=== PATIENT | female | born 1940 | race Caucasian/White ===

== ENCOUNTER 2017-03-14 12:46 | Emergency (ER) | payer MEDICARE ==
--- NOTE | 2017-03-14 15:32 | Diagnostic Imaging Report ---
PROCEDURE:HIP LEFT 2-3 VW (+/- PELVIS) COMPARISON:None. INDICATIONS:HIP PAIN FINDINGS: BONES:A thin, sclerotic band across the neck of the left femur is suggestive of a fracture plane. The femoral head is intact and normally situated with mild degenerative changes of the acetabulum. The right hip is intact and normally positioned. The pubic rami are intact. No diastases the pubic symphysis or sacroiliac joints. There are moderate degenerative changes of the lower lumbar spine. SOFT TISSUES:Multiple vascular soft tissues in the pelvis. CONCLUSION: Suspected nondisplaced fracture of the left femoral neck. Mild degenerative changes of the left hip. Dictated by: Arpita Santos M.D. on 03/14/2017 at 15:40 Electronically approved by: Arpita Santos M.D. on 03/14/2017 at 15:40
--- NOTE | 2017-03-14 15:36 | Diagnostic Imaging Report ---
PROCEDURE:X-RAY CHEST, ONE VIEW COMPARISON:None. INDICATIONS:CHEST PAIN FINDINGS: The patient's chin overlies the upper chest. The heart is normal in size. Aorta is mildly ectatic. No hilar lymphadenopathy. The lungs are well-inflated. There is no evidence of mass or infiltrate. The pulmonary vascular markings are normal. The costophrenic angles are sharp. No evidence of pneumothorax. The bones are intact without focal osseous lesion. There is suggestion of surgical clips in the right upper quadrant indicative of cholecystectomy. CONCLUSION: No acute cardiopulmonary process. Dictated by: Arpita Santos M.D. on 03/14/2017 at 15:44 Electronically approved by: Arpita Santos M.D. on 03/14/2017 at 15:44
[2017-03-15] MEDS ORDERED: TYLENOL WITH C1 EACH PO (03:51)
[2017-03-15] MEDS ORDERED: DEPAKOTE SPRIN125 MG PO (03:51)
[2017-03-15] MEDS ORDERED: SEROQUEL25 MG PO (03:51)
[2017-03-15] MEDS ORDERED: METFORMIN HCL500 MG PO (03:51)
[2017-03-15] MEDS ORDERED: HYDRALAZINE HCL25 MG PO (03:51)
[2017-03-15] MEDS ORDERED: LOMOTIL TABLET1 EACH PO (03:51)
[2017-03-15] MEDS ORDERED: IPRAT-ALBUT 0.5-3 ML INH (03:51)
[2017-03-15] MEDS ORDERED: OXYBUTYNIN CHLOR5 MG PO (03:51)
[2017-03-15] MEDS ORDERED: VITAMIN D1000 UNI1 PO (03:51)
[2017-03-15] MEDS ORDERED: NIFEDIPINE ER30 M1 PO (03:51)
== END 2017-03-14 19:17 | disposition left against medical advice (07) ==
LOC: ER 12:46
DX: M25.552 Pain in left hip (principal)
CPT/HCPCS: 71010

== ENCOUNTER 2017-03-14 22:59 | Inpatient (IN) | payer MEDICARE ==
[~2017-03-14] VITALS: Ht 154.9 cm; Wt 54.4 kg
[2017-03-15] VITALS (7 sets, daily range): BP systolic 120–153; BP diastolic 58–67
[2017-03-15] MEDS ORDERED: NIFEDIPINE ER30 M1 PO (03:51)
[2017-03-15] MEDS ORDERED: METFORMIN HCL500 MG PO (03:51)
[2017-03-15] MEDS ORDERED: TYLENOL WITH C1 EACH PO (03:51)
[2017-03-15] MEDS ORDERED: LOMOTIL TABLET1 EACH PO (03:51)
[2017-03-15] MEDS ORDERED: SEROQUEL25 MG PO (03:51)
[2017-03-15] MEDS ORDERED: VITAMIN D1000 UNI1 PO (03:51)
[2017-03-15] MEDS ORDERED: OXYBUTYNIN CHLOR5 MG PO (03:51)
[2017-03-15] MEDS ORDERED: IPRAT-ALBUT 0.5-3 ML INH (03:51)
[2017-03-15] MEDS ORDERED: HYDRALAZINE HCL25 MG PO (03:51)
[2017-03-15] MEDS ORDERED: DEPAKOTE SPRIN125 MG PO (03:51)
[2017-03-15] MEDS ORDERED: DIPHENOXYLATE/ATROPINE TAB PO PRN (04:00)
[2017-03-15] MEDS ORDERED: ALBUTEROL/IPRATROPIUM 3 ML NEB INH PRN (04:00)
[2017-03-15] MEDS ORDERED: ACETAMINOPHEN/CODEINE 300MG - 30MG TAB PO SCH (06:00)
[2017-03-15] MEDS: HYDRALAZINE HCL 25 MG TAB PO SCH ×3 (06:18→21:38)
[2017-03-15 06:47] LABS: BASOPHILS # (AUTO) 0.1 (0.0-0.1); BASOPHILS % 0.7 % (0.0-1.0); EOSINOPHILS # (AUTO) 0.2 (0.0-0.4); EOSINOPHILS % 2.2 % (0.0-6.0); HEMATOCRIT 34.3 % (34.2-44.1); HEMOGLOBIN 11.6 g/dL (12.0-16.0); LYMPHOCYTES # (AUTO) 1.3 (1.0-3.2); LYMPHOCYTES % 17.3 % (18.0-39.1); MEAN CORPUSCULAR HGB CONC 33.8 g/dL (31-35); MEAN CORPUSCULAR VOLUME 88.6 fL (81-99); MONOCYTES # (AUTO) 0.8 (0.2-0.8); MONOCYTES % 10.9 % (4.4-11.3); NEUTROPHILS % 68.5 % (38.7-80.0); PLATELET COUNT 173 x10e3/uL (140-360); RED BLOOD COUNT 3.87 x10e6/uL (3.6-5.1)
[2017-03-15 07:05] LABS: INR 0.95; PROTHROMBIN TIME 13.1 seconds (11.9-14.5)
[2017-03-15 07:06] LABS: PARTIAL THROMBOPLASTIN TIME 27.6 seconds (23.8-35.5)
[2017-03-15 07:12] LABS: ALANINE AMINOTRANSFERASE 11 IU/L (0-55); ALBUMIN 2.7 g/dL (3.5-5.0); ALKALINE PHOSPHATASE 44 IU/L (40-150); ANION GAP 12.7 mmol/L (8-16); BLOOD UREA NITROGEN 19 mg/dL (7-26); BUN/CREATININE RATIO 29 (6-25); CALCIUM 8.6 mg/dL (8.4-10.2); CARBON DIOXIDE 26 mmol/L (22-29); CHLORIDE 107 mmol/L (98-107); CREATININE, SERUM 0.66 mg/dL (0.57-1.11); EST GLOMERULAR FILTRATION RATE > 60 ML/MIN (60-); GLUCOSE 100 mg/dL (74-118); POTASSIUM 3.7 mmol/L (3.5-5.1); SODIUM 142 mmol/L (136-145)
[2017-03-15] MEDS ORDERED: DIVALPROEX SODIUM 125 MG PO SCH (09:00)
[2017-03-15] MEDS: OXYBUTYNIN CHLORIDE 5 MG TAB PO SCH ×2 (09:00→16:50)
[2017-03-15] MEDS ORDERED: METFORMIN HCL 500 MG TAB PO SCH (09:00)
[2017-03-15] MEDS: DIVALPROEX SODIUM 125 MG TABDR...ER PO SCH ×3 (09:00→20:27)
[2017-03-15] MEDS: NIFEDIPINE CR 30 MG TAB PO SCH (09:00)
[2017-03-15] MEDS: CHOLECALCIFEROL 1,000 UNIT TAB PO SCH (09:00)
[2017-03-15] MEDS ORDERED: CEFAZOLIN SOD 2 GM in WATER STERILE 10ML VIAL 10 ML IV ONE (10:00)
[2017-03-15] MEDS: MORPHINE SULFATE 2 MG/ML SYR IV PRN (12:46)
[2017-03-15] MEDS ORDERED: FENTANYL CITRATE/PF 100MCG/2 ML INJ ONE (15:13)
[2017-03-15] MEDS ORDERED: CEFAZOLIN SOD 1 GM VIAL ONE (16:37)
[2017-03-15] MEDS ORDERED: ONDANSETRON HCL INJ 2 MG/ML VIAL IV PRN (18:15)
--- NOTE | 2017-03-15 18:36 | Diagnostic Imaging Report ---
PROCEDURE:HIP LEFT ONE VIEW (+/- PELVIS) COMPARISON:[facility], DX, HIP LEFT 2-3 VW (+/- PELVIS), 03/14/2017, 15:00. INDICATIONS:HIP SURGERY FINDINGS: BONES:Status post ORIF with placement of 2 cancellous screws stabilizing a likely left femoral neck fracture. Hardware is intact. SOFT TISSUES:Metallic rosamaria in the lateral soft tissues OTHER:Pelvic phleboliths. Degenerative changes in the lower lumbar sacral spine. Degenerative changes in bilateral hip joints.. CONCLUSION: Status post ORIF of left femoral neck fracture with placement of 2 cancellous screws. Hardware is intact. Juan José Richardson M.D. Dictated by: Juan José Richardson M.D. on 03/15/2017 at 18:44 Electronically approved by: Juan José Richardson M.D. on 03/15/2017 at 18:44
[2017-03-15] MEDS ORDERED: PROPOFOL IV EMULSION 10 MG/ML 20 ML VIAL ONE (18:38)
[2017-03-15] MEDS ORDERED: SEVOFLURANE INHAL SOLN 250 ML PEN BTL ONE (18:38)
[2017-03-15] MEDS ORDERED: LIDOCAINE HCL 2% LOCAL INJ 5 ML SDV VIAL INJ ONE (18:38)
[2017-03-15] MEDS ORDERED: DEXAMETHASONE SOD PHOS INJ 4 MG/ML VIAL ONE (18:38)
[2017-03-15] MEDS ORDERED: ONDANSETRON HCL INJ 2 MG/ML VIAL ONE (18:38)
[2017-03-15] MEDS: QUETIAPINE FUMARATE 25 MG TAB PO SCH (20:27)
[2017-03-15] MEDS: SODIUM CHLORIDE 0.9% 1000ML 1,000 ML IV SCH (20:31)
[2017-03-15] MEDS ORDERED: CEFAZOLIN SOD 1 GM VIAL IV SCH (22:00)
[2017-03-15] MEDS ORDERED: CEFAZOLIN SOD 1 GM/NS 50ML 50 ML IV SCH (22:00)
--- NOTE | 2017-03-15 23:55 | Operative Report ---
DATE OF PROCEDURE: March 15, 2017 PREOPERATIVE DIAGNOSIS: Left nondisplaced femoral neck fracture. POSTOPERATIVE DIAGNOSIS: Left nondisplaced femoral neck fracture. PROCEDURE PERFORMED: Patient underwent closed reduction and percutaneous pinning of the left femoral neck fracture. PHOTOCOPY OPERATOR: None. ANESTHESIA: General endotracheal intubation anesthesia. IV FLUIDS: Per the anesthesia record. BRIEF DESCRIPTION OF OPERATIVE PROCEDURE: Ms. Asher was taken to the operating room, placed in supine position on the operating table. Following induction of general anesthesia, as well endotracheal intubation, the patient's left lower extremity was well-padded with longitudinal traction. The right lower extremity was placed in a well-padded lithotomy position. Fluoroscopic evaluation of the left hip joint demonstrated a nondisplaced left femoral neck fracture. Patient's thigh and flank were prepped draped in standard surgical fashion. The case was begun by creating incision roughly at the level of the patient's femoral neck over the lateral aspect of the thigh. This incision was carried through skin only. Blunt dissection was used and deepened the incision to the level of the lateral aspect of the femur. The guide for the 7.3 cannulated screw system was placed against the lateral aspect of the femur. Three guide pins were advanced from lateral to medial through the neck into the head of the femur. The position of pins, as well as the direction of fracture was assessed fluoroscopically and found to be appropriate. The wound was copiously irrigated and closed in a multilayer fashion. Sterile dressings were applied and the patient was then awakened and taken to post anesthesia care unit in stable condition. Three guide pins were advanced from lateral to medial through the neck into the head of the femur. Measurements were taken and then, 3 screws were advanced over the pins placing compression across the patient's fracture site. The position of those screws as well as reduction of fracture site was again assessed using fluoroscopy and found to be appropriate. The wound was copiously irrigated. It was closed in a multilayer fashion. Sterile dressings were applied. The patient was then awakened and taken to postanesthesia care unit in stable condition. Job#: [id number] CQ
[2017-03-16] VITALS (8 sets, daily range): BP systolic 106–148; BP diastolic 56–74
[2017-03-16] MEDS: CEFAZOLIN SOD 1 GM VIAL IV SCH ×3 (00:04→16:40)
[2017-03-16] MEDS: ACETAMINOPHEN 1000 MG/100 ML IV SCH ×4 (00:04→17:57)
[2017-03-16] MEDS: HYDRALAZINE HCL 25 MG TAB PO SCH ×3 (06:00→21:44)
[2017-03-16 06:27] LABS: HEMATOCRIT 33.9 % (34.2-44.1); HEMOGLOBIN 11.3 g/dL (12.0-16.0)
[2017-03-16] MEDS: MORPHINE SULFATE 2 MG/ML SYR IV PRN ×2 (07:04→16:41)
[2017-03-16] MEDS: SODIUM CHLORIDE 0.9% 1000ML 1,000 ML IV SCH ×2 (07:25→17:57)
[2017-03-16] MEDS: NIFEDIPINE CR 30 MG TAB PO SCH (08:37)
[2017-03-16] MEDS: CHOLECALCIFEROL 1,000 UNIT TAB PO SCH (08:37)
[2017-03-16] MEDS: METFORMIN HCL 500 MG TAB PO SCH (08:37)
[2017-03-16] MEDS: OXYBUTYNIN CHLORIDE 5 MG TAB PO SCH ×2 (08:37→16:41)
[2017-03-16] MEDS: ENOXAPARIN SOD INJ 40 MG/0.4 ML SYR SC SCH (08:37)
[2017-03-16] MEDS: DIVALPROEX SODIUM 125 MG TABDR...ER PO SCH ×3 (08:37→21:43)
[2017-03-16 08:51] LABS: CHOL/HDL RATIO 3.8 (3.0-3.6)
[2017-03-16] MEDS: DOCUSATE SODIUM 100 MG CAP PO SCH (09:00)
[2017-03-16] MEDS: SENNOSIDES 8.6 MG TAB PO SCH ×2 (09:00→16:41)
--- NOTE | 2017-03-16 09:22 | Consultation ---
DATE OF CONSULTATION: MEDICAL CONSULTATION REQUESTING PHYSICIAN: Dr. Nath. REASON FOR CONSULTATION: Medical management. CHIEF COMPLAINT: Fall, hip fracture. HISTORY OF PRESENT ILLNESS: This is a 76-year-old woman, who is a resident at [facility]. She had a fall with a resultant left hip fracture. The patient has since undergone surgical management here by open reduction and internal fixation. Pain appears to be controlled, but she has what appears to be acute delirium due to the pain and pain medications. The patient is currently resting in bed, unable to provide any further history. PAST MEDICAL HISTORY 1. Dementia. 2. Diabetes mellitus, type 2. 3. Hypertension. 4. Chronic pain. 5. Anxiety disorder. 6. Chronic diarrhea. PAST SURGICAL HISTORY: Unknown. ALLERGIES: PER ELECTRONIC MEDICAL RECORD. FAMILY HISTORY/SOCIAL HISTORY: The patient is a resident at [facility]. MEDICATIONS: Per electronic medical record. REVIEW OF SYSTEMS: Unobtainable. VITAL SIGNS: Have been reviewed. PHYSICAL EXAMINATION GENERAL APPEARANCE: A tired-appearing woman resting in bed. HEENT: Anicteric. CARDIOVASCULAR: Normal S1 and S2. LUNGS: Moderate breath sounds. ABDOMEN: Soft, nontender, nondistended. EXTREMITIES: Left hip with dressing in place, clean and dry. SKIN: Dry. PSYCHIATRIC: Flat affect. NEUROLOGIC: Awake, but not interactive. Moving all extremities. LABS: Reviewed. MEDICATIONS: Reviewed. ASSESSMENT AND PLAN: This is a 76-year-old woman. 1. Fall with left hip fracture. She is status post open reduction and internal fixation. Continue physical therapy. 2. Acute pain of the left hip. P.R.N. pain medication. 3. Diabetes mellitus, type 2. Obtain hemoglobin A1c and lipid panel. Continue metformin. 4. Hypertension. Continue home medications. 5. Mood disorder/dementia. Continue divalproex and other medications. 6. Normocytic anemia, moderate. Will continue to follow. 7. Prophylaxis. Will use bowel regimen, Lovenox and Pepcid. 8. Disposition: Continue physical therapy. Discharge planning. SATHYA ORDOÑEZ MD Job#: [id number]
[2017-03-16] MEDS: ACETAMINOPHEN/CODEINE 300MG - 30MG TAB PO PRN (14:22)
[2017-03-16] MEDS: FAMOTIDINE 20 MG TAB PO SCH (16:41)
[2017-03-16] MEDS: QUETIAPINE FUMARATE 25 MG TAB PO SCH (21:43)
[2017-03-17] VITALS (7 sets, daily range): BP systolic 108–165; BP diastolic 58–73
[2017-03-17] MEDS: HYDRALAZINE HCL 25 MG TAB PO SCH ×3 (06:19→21:47)
[2017-03-17] MEDS: MORPHINE SULFATE 2 MG/ML SYR IV PRN ×3 (07:20→18:10)
[2017-03-17] MEDS: DOCUSATE SODIUM 100 MG CAP PO SCH (08:38)
[2017-03-17] MEDS: OXYBUTYNIN CHLORIDE 5 MG TAB PO SCH ×2 (08:38→17:00)
[2017-03-17] MEDS: METFORMIN HCL 500 MG TAB PO SCH (08:38)
[2017-03-17] MEDS: SENNOSIDES 8.6 MG TAB PO SCH ×2 (08:38→17:00)
[2017-03-17] MEDS: CHOLECALCIFEROL 1,000 UNIT TAB PO SCH (08:38)
[2017-03-17] MEDS: ENOXAPARIN SOD INJ 40 MG/0.4 ML SYR SC SCH (08:38)
[2017-03-17] MEDS: NIFEDIPINE CR 30 MG TAB PO SCH (08:38)
[2017-03-17] MEDS: FAMOTIDINE 20 MG TAB PO SCH ×2 (08:38→16:30)
[2017-03-17] MEDS: DIVALPROEX SODIUM 125 MG TABDR...ER PO SCH ×3 (08:38→20:50)
--- NOTE | 2017-03-17 09:25 | Progress Note ---
DATE: March 17, 2017 TIME: 7:43 a.m. OVERNIGHT: Feeling a little better. Still fatigued. REVIEW OF SYSTEMS: Denies any dizziness. VITAL SIGNS: Reviewed. PHYSICAL EXAMINATION GENERAL APPEARANCE: A tired-appearing woman resting in bed. HEENT: Anicteric. CARDIOVASCULAR: Normal S1 and S2. LUNGS: Moderate breath sounds. ABDOMEN: Soft, nontender, nondistended. EXTREMITIES: No edema or calf tenderness. NEUROLOGIC: Alert and oriented times 2. Moving all extremities. SKIN: Dry. PSYCHIATRIC: Flat affect. LABS: Reviewed. MEDICATIONS: Reviewed. ASSESSMENT AND PLAN: This is a 76-year-old woman. 1. Fall with left hip fracture. Status post open reduction and internal fixation. 2. Acute pain of the left hip. 3. Diabetes mellitus, type 2. 4. Hypertension. 5. Mood disorder/dementia. 6. Normocytic anemia, moderate. PLAN 1. Continue physical therapy. 2. Follow up liver function. 3. Control pain. 4. Followup labs tomorrow. Hemoglobin A1c 5.0, LDL 88 and triglycerides 88. 5. C. difficile testing was negative. 6. Bowel regimen. Job#: [id number]
[2017-03-17] MEDS: ACETAMINOPHEN/CODEINE 300MG - 30MG TAB PO PRN ×2 (09:33→21:47)
[2017-03-17] MEDS: SODIUM CHLORIDE 0.9% 1000ML 1,000 ML IV SCH ×2 (10:05→23:25)
[2017-03-17] MEDS: DIPHENHYDRAMINE HCL INJ 50 MG/ML VIAL IM/IV PRN ×2 (10:09→20:50)
[2017-03-17] MEDS ORDERED: QUETIAPINE FUMARATE 25 MG TAB PO ONE (11:30)
[2017-03-17] MEDS: QUETIAPINE FUMARATE 25 MG TAB PO SCH (20:50)
[2017-03-18] VITALS: BP 109/68
[2017-03-18 04:00] VITALS: BP 135/63
[2017-03-18] MEDS: HYDRALAZINE HCL 25 MG TAB PO SCH ×2 (05:23→15:00)
[2017-03-18 08:00] VITALS: BP 146/68
[2017-03-18] MEDS: ENOXAPARIN SOD INJ 40 MG/0.4 ML SYR SC SCH (09:00)
[2017-03-18] MEDS: SENNOSIDES 8.6 MG TAB PO SCH (09:00)
[2017-03-18] MEDS: METFORMIN HCL 500 MG TAB PO SCH (09:00)
[2017-03-18] MEDS: OXYBUTYNIN CHLORIDE 5 MG TAB PO SCH (09:00)
[2017-03-18] MEDS: NIFEDIPINE CR 30 MG TAB PO SCH (09:00)
[2017-03-18] MEDS: QUETIAPINE FUMARATE 25 MG TAB PO SCH (09:00)
[2017-03-18] MEDS: DOCUSATE SODIUM 100 MG CAP PO SCH (09:00)
[2017-03-18] MEDS: CHOLECALCIFEROL 1,000 UNIT TAB PO SCH (09:00)
[2017-03-18] MEDS: DIVALPROEX SODIUM 125 MG TABDR...ER PO SCH ×2 (09:00→15:00)
[2017-03-18] MEDS: FAMOTIDINE 20 MG TAB PO SCH ×2 (09:00→16:30)
[2017-03-18 11:41] VITALS: BP 159/77
[2017-03-18] MEDS: SODIUM CHLORIDE 0.9% 1000ML 1,000 ML IV SCH (12:45)
[2017-03-18] MEDS ORDERED: ENOXAPARIN SOD INJ 40 MG/0.4 ML SYR SC SCH (17:00)
--- NOTE | 2017-03-18 20:11 | Discharge Summary ---
DISCHARGE DIAGNOSES 1. Fall with left hip fracture, status post repair. 2. Acute pain of the left hip. 3. Diabetes mellitus type 2. 4. Hypertension. 5. Normocytic anemia, moderate. SECONDARY DIAGNOSIS: Dementia. CHIEF COMPLAINT: Fall. HISTORY OF PRESENT ILLNESS: A 76-year-old woman with fall with left hip fracture. Please refer to the H\T\P for further details. HOSPITAL COURSE: The patient had a fall with left hip fracture and she underwent open reduction and internal fixation and received physical therapy. Acute pain of the left hip was treated with pain medication. Diabetes mellitus type 2 was managed with medication and diet. She had normocytic anemia which was moderate and she remained stable. The patient is doing better. The hemoglobin A1c was 5.0, LDL 80, triglycerides 88. C. diff. testing was negative. The patient is currently appropriate for discharge. DISCHARGE MEDICATIONS: Per electronic medical records. FOLLOWUP INSTRUCTIONS: Follow up with primary care physician in one week. CONDITION ON DISCHARGE: Stable and improving. DISCHARGE LOCATION: Skilled facility. SATHYA ORDOÑEZ MD Job#: [id number]
[2017-03-18] MEDS ORDERED: SENNOSIDES 8.6 MG TAB PO SCH (21:00)
[2017-03-18] MEDS ORDERED: OXYBUTYNIN CHLORIDE 5 MG TAB PO SCH (21:00)
== END 2017-03-18 17:31 | DRG 481 ==
LOC: MED/SURG 03-15 00:22
PROVIDERS: ADMIT Internal Medicine; ATTEND Internal Medicine
PROC: 0QS734Z Reposition Left Upper Femur with Internal Fixation Device, Percutaneous Approach (ICD-10-PCS; principal; 2017-03-15 16:44)
DX: S72.002A Fracture of unspecified part of neck of left femur, initial encounter for closed fracture (principal); F05 Delirium due to known physiological condition; E11.9 Type 2 diabetes mellitus without complications; F03.90 Unspecified dementia, unspecified severity, without behavioral disturbance, psychotic disturbance, mood disturbance, and anxiety; I10 Essential (primary) hypertension; F41.9 Anxiety disorder, unspecified; D64.9 Anemia, unspecified; W19.XXXA Unspecified fall, initial encounter; Y92.129 Unspecified place in nursing home as the place of occurrence of the external cause; G89.29 Other chronic pain; K52.9 Noninfective gastroenteritis and colitis, unspecified
CPT/HCPCS: 36415; 76001; 80053; 80061; 82948; 83036; 85014; 85018; 85025; 85610; 85730; 86850; 86900; 87493; 93005; 96361; 97139; J0690; J1100; J1200; J1650; J2001; J2270; J2405; J7030